=== PATIENT | female | born 1955 ===

== ENCOUNTER 2024-03-25 09:56 | Emergency (ER) | payer MEDICARE, OTHER | END 2024-03-25 11:50 | disposition home or self-care (01) | LOC: MW.ED 09:56 | DX: M71.21 Synovial cyst of popliteal space [Baker], right knee (principal); M79.661 Pain in right lower leg; I10 Essential (primary) hypertension; E03.9 Hypothyroidism, unspecified; E66.9 Obesity, unspecified; Z79.890 Hormone replacement therapy; Z79.899 Other long term (current) drug therapy; Z75.8 Other problems related to medical facilities and other health care; Z68.36 Body mass index [BMI] 36.0-36.9, adult | CPT/HCPCS: 93971-26-RT; 93971-RT; 99283 ==